=== PATIENT | female | born 1945 | race Caucasian/White ===

== ENCOUNTER 2017-03-15 10:50 | Day surgery (SDC) | payer OTHER ==
[~2017-03-15] VITALS: Ht 167.6 cm; Wt 81.3 kg
[~2017-03-15 10:50] MED LIST: ALENDRONATE SOD35 MG PO; ALEVE220 MG PO; AMBIEN10 MG PO; AMBIEN5 MG PO; ATENOLOL25 MG PO; CALCARB 600 W-1 EACH PO; CALCIUM 250+D1 EACH PO; CELEBREX200 MG PO; CELECOXIB200 MG PO; COUMADIN,JANTOVE4 MG PO; Coumadin,Jantoven PO; DIPHEDRYL25 M1 PO; Evista PO; FERROUS SULFAT325 MG PO; FLECTOR 1.3%1 PATC1 TD; FLONASE ALLERG9.9 ML BOTH NARES; FLONASE16 G1 BOTH NARES; Feosol PO; Flonase BOTH NARES; HYDROCODON-ACE1 EAC7 PO; HYTRIN5 MG PO; LOVENOX40 MG/0.4 SC; LYRICA200 MG PO; MIRAPEX0.125 MG PO; MONTELUKAST SOD10 MG PO; Methadone PO; Mirapex PO; NASAL & SINUS D30 MG PO; NIFEDIPINE ER30 MG PO; NIFEDIPINE10 MG PO; OXYCODONE-APAP1 EACH PO; PAMELOR10 MG PO; PERCOCET 10/1 TABLET PO; PRAMIPEXOLE0.125 MG PO; PRESERVISION T1 EACH PO; PROCARDIA XL30 MG PO; PROVENTIL HFA6.7 GM IH; Percocet 5/325,Endoc PO; Proventil,Ventolin H IH; SENOKOT S,PE1 TABLET PO; SERTRALINE HCL100 MG PO; SIMVASTATIN20 MG PO; SINGULAIR10 MG PO; SYMBICORT60 INHALAT IH; Symbicort 160-4.5 mc IH; THERAGRAN1 TABLET PO; TRAZODONE HCL150 MG PO; Vicodin,Norco 5/325 PO; ZANTAC150 MG PO; ZOCOR20 MG PO; ZOLOFT100 MG PO; ZOLPIDEM TARTRA10 MG PO; Zocor PO; [UNRECOGNIZED DRUG - OTHER] PO
[2017-03-15 11:32] VITALS: BP 149/79
[2017-03-15 11:58] LABS: ADD MIUA? YES; BILIRUBIN NEGATIVE; BLOOD NEGATIVE; COLOR YELLOW ((YELLOW)); GLUCOSE (STRIP) NEGATIVE; KETONES NEGATIVE; LEUKOCYTES NEGATIVE; NITRITE NEGATIVE; PROTEIN (STRIP) NEGATIVE; SPECIFIC GRAVITY 1.018 (1.000-1.030); UROBILINOGEN 0.2 MG/DL (0.2-1.0)
[2017-03-15 13:24] LABS: BACTERIA RARE /HPF; CASTS PRESENT /LPF; EPITHELIAL CELLS 1+ /HPF; HYALINE CASTS 0-5 /LPF; MUCUS 1+ /LPF; RED BLOOD CELLS 0-5 /HPF (0-5); WHITE BLOOD CELLS 0-5 /HPF (0-5)
[2017-03-15] MEDS ORDERED: PERCOCET 5/31 TABLET PO (13:55)
[2017-03-15] MEDS ORDERED: COLACE100 MG PO (13:55)
[2017-03-15] MEDS ORDERED: LIDOCAINE HCL120 GM TP (13:55)
[2017-03-15 15:00] VITALS: BP 138/67
[2017-03-15 15:58] VITALS: BP 122/69
== END 2017-03-15 16:10 | disposition home or self-care (01) ==
LOC: SDC 10:50
PROVIDERS: Surgery
PROC: 06BY0ZC Excision of Hemorrhoidal Plexus, Open Approach (ICD-10-PCS; principal; 2017-03-15)
DX: K64.8 Other hemorrhoids (principal); I10 Essential (primary) hypertension; I44.7 Left bundle-branch block, unspecified; G47.33 Obstructive sleep apnea (adult) (pediatric); J44.9 Chronic obstructive pulmonary disease, unspecified; Z85.828 Personal history of other malignant neoplasm of skin; Z95.0 Presence of cardiac pacemaker; K21.9 Gastro-esophageal reflux disease without esophagitis; Z87.891 Personal history of nicotine dependence
CPT/HCPCS: 81003; 88304; J1100; J1170; J2405; J3010

== ENCOUNTER 2017-08-15 21:07 | Inpatient (IN) | payer OTHER ==
[~2017-08-15] VITALS: Ht 167.6 cm; Wt 81.1 kg
[~2017-08-15 21:07] MED LIST changes: +AMLODIPINE-OLM1 EAC3 PO; +COLACE100 MG PO; +HYDROCHLOROTH12.5 M3 PO; +LIDOCAINE HCL120 GM TP; +PERCOCET 5/31 TABLET PO; -PROCARDIA XL30 MG PO; +PROCARDIA XL60 MG PO; -ZOCOR20 MG PO; +ZOCOR40 MG PO
[2017-08-16 05:57] VITALS: BP 99/55
[2017-08-16 10:01] LABS: HEMATOCRIT 30.9 % (36.0-46.0); MCH 28.8 PG (29.0-34.0); MCV 87.3 FL (83-99); PLATELET COUNT 255 K/uL (156-360); RBC DIS.WIDTH-CV 12.6 % (11.8-14.6); RBC DIS.WIDTH-SD 40.7 % (39-53); WHITE BLOOD COUNT 6.2 K/uL (4.1-10.2)
[2017-08-16 10:13] LABS: HEMOGLOBIN 10.2 G/DL (11.9-15.5); RED BLOOD COUNT 3.54 M/uL (3.80-5.20)
[2017-08-16 10:20] VITALS: BP 131/64
[2017-08-16 15:44] VITALS: BP 108/52
[2017-08-16 20:26] VITALS: BP 109/55
[2017-08-17 00:25] VITALS: BP 134/68
[2017-08-17 04:00] VITALS: BP 130/63
[2017-08-17 06:48] LABS: HEMATOCRIT 31.2 % (36.0-46.0); HEMOGLOBIN 10.1 G/DL (11.9-15.5); MCV 89.7 FL (83-99)
[2017-08-17 07:14] LABS: CHLORIDE 100 MEQ/L (99-109); CREATININE 0.9 MG/DL (0.6-1.3); GFR ESTIMATE (CALCULATED) > 59 mL/min/; GLUCOSE 77 mg/dL (70-99); POTASSIUM 4.2 MEQ/L (3.7-5.4); SODIUM 133 MEQ/L (136-147); UREA NITROGEN (BUN) 14 mg/dL (9-23)
[2017-08-17 08:17] VITALS: BP 149/7
[2017-08-17 11:44] VITALS: BP 137/62
[2017-08-17 15:57] VITALS: BP 154/68
[2017-08-17 19:41] VITALS: BP 132/65
[2017-08-18 00:25] VITALS: BP 131/73
[2017-08-18 04:25] VITALS: BP 165/77
[2017-08-18 05:58] LABS: HEMATOCRIT 30.8 % (36.0-46.0)
[2017-08-18 08:00] VITALS: BP 170/78
[2017-08-18] MEDS ORDERED: ENDOCET 5-3251 EACH PO (08:04)
[2017-08-18] MEDS ORDERED: SENNA PLUS TAB1 EACH PO (08:04)
[2017-08-18] MEDS ORDERED: LOVENOX40 MG/0.4 SC (08:04)
[2017-08-18] MEDS ORDERED: OXYCONTIN10 MG PO (08:04)
[2017-08-18 12:25] VITALS: BP 130/64
== END 2017-08-18 15:00 | DRG 489 ==
LOC: ENRESERV 21:07 → 2SOUTH 08-16 05:24 → 3WEST 08-16 09:58 → 2SOUTH 08-16 13:29 → 3WEST 08-18 15:00
PROVIDERS: Orthopaedic Surgery
DX: T84.062A Wear of articular bearing surface of internal prosthetic right knee joint, initial encounter (principal); T84.022A Instability of internal right knee prosthesis, initial encounter; Y83.1 Surgical operation with implant of artificial internal device as the cause of abnormal reaction of the patient, or of later complication, without mention of misadventure at the time of the procedure; M17.11 Unilateral primary osteoarthritis, right knee; M79.7 Fibromyalgia; I10 Essential (primary) hypertension; M81.0 Age-related osteoporosis without current pathological fracture; J44.9 Chronic obstructive pulmonary disease, unspecified; J45.909 Unspecified asthma, uncomplicated; E78.00 Pure hypercholesterolemia, unspecified; G25.81 Restless legs syndrome; H35.30 Unspecified macular degeneration; K21.9 Gastro-esophageal reflux disease without esophagitis; F32.9 Major depressive disorder, single episode, unspecified; Z87.891 Personal history of nicotine dependence; Z96.643 Presence of artificial hip joint, bilateral; Z95.0 Presence of cardiac pacemaker
CPT/HCPCS: 73560; 80048; 85014; 85018; 85027; 86850; 86900; 86901; 86920; 94640; 94640 76; 94799; 99202; J0690; J1100; J1170; J1650; J2250; J2405; J2795; J3010; J7030